=== PATIENT | female | born 1980 | race Two or more races ===

== ENCOUNTER 2016-10-25 06:28 | Inpatient (IN) | payer OTHER ==
[2016-10-25] MEDS ORDERED: TERBUTALINE SULFATE 1 MG/ML VIAL IV PRN (07:05)
[2016-10-25] MEDS ORDERED: OXYTOCIN/RINGERS LACTATE 1,000 ML IV PRN (07:05)
[2016-10-25] MEDS ORDERED: EPSOM SALT 454 GM TP PRN (07:05)
[2016-10-25] MEDS ORDERED: LR 1,000 ML IV PRN (07:05)
[2016-10-25] MEDS ORDERED: OLIVE OIL 118 ML BTL MISC PRN (07:05)
[2016-10-25 07:32] LABS: ABSOLUTE IMMATURE GRANULOCYTES 0.21 10^3/uL (0.00-0.10); ADD DIFF? NO; ADD MORPH? NO; ADD SCAN? NO; ATYPICAL LYMPHOCYTE FLAG 0 (0-99); FRAGMENT RBC FLAG 0 (0-99); HEMATOCRIT 40.5 % (38.0-47.0); HEMOGLOBIN 13.7 g/dL (12.6-16.3); LEFT SHIFT FLG 20 (0-99); LIPEMIA HEMOLYSIS FLAG 90 (0-99); MEAN CELL HEMOGLOBIN 30.3 pg (27.9-34.1); MEAN CELL HEMOGLOBIN CONCENTR. 33.8 g/dL (32.4-36.7); MEAN CELL VOLUME 89.6 fL (81.5-99.8); MEAN PLATELET VOLUME 10.7 fL (8.7-11.7); PLATELET CLUMPS FLAG 0 (0-99); PLATELET COUNT 243 10^3/uL (150-400); RED BLOOD CELL COUNT 4.52 10^6/uL (4.18-5.33); RED CELL DISTRIBUTION WIDTH 13.2 % (11.5-15.2)
--- NOTE | 2016-10-25 08:26 | OBPROG ---
OBG Labor Progress Note Assessment/Plan: Assessment:cat1 fhr saavedra bulb placed 30cc 2-3/50/-2 cephalic soft pitocin per protocol no contractions consulted with dr. rosado on POC Plan:iol for postdates 10/25/16 08:24 Subjective: Lots of questions before beginning IOL Objective: 10/25/16 07:00 Patient ABO/Rh B POSITIVE 10/25/16 07:00 - SVE Dilation (cm): 2 Effacement (%): 50 Station: -2 - Physical Exam General Appearance: WD/WN, alert, no apparent distress Estimated Weight: 3020-1569 Respiratory: chest non-tender, lungs clear, normal breath sounds Cardiac/Chest: regular rate, rhythm Abdomen: normal bowel sounds Extremities: normal range of motion, Joaquin's sign (negative bilaterally) DTR- Lower Extremities: Knee (R): 1+, Knee (L): 1+ (no clonus) Skin: normal color, warm/dry Neuro/Psych: no motor/sensory deficits, alert, normal mood/affect, oriented x 3 Oxytocin Orders Assessment - Pre-Induction/Augmentation Assessment Gestational Age: 41 week(s) and 3 day(s) ICD10 Worksheet Patient Problems: Problems Problem Status Onset IOL postdates Acute
[2016-10-25] MEDS ORDERED: OXYTOCIN/RINGERS LACTATE 500 ML IV SCH (08:30)
--- NOTE | 2016-10-25 09:52 | GHP ---
[f rep st] HISTORY AND PHYSICAL DATE OF ADMISSION: 10/25/2016 Patient is a 36-year-old, 3, para 0, AB 2, with an EDC of 10/15/2016, who is 41-1/7 weeks' gestational age. The patient comes in to Labor and Delivery today on 10/25/2016, for an induction of labor for post date. MEDICAL HISTORY: The patient has a history of anxiety and depression, history of asthma, decreased thyroid in . Had an endocrine referral. LGA. Previous use of Xanax although none in the . History of HSV type 1. Some gastrointestinal, digestive stuff, cholecystectomy at 4 years old. SURGICAL HISTORY: Cholecystectomy, 2 TABs. SOCIAL HISTORY: Patient is . Before , daily marijuana use. Denies tobacco smoking. Denies drug use. PREVIOUS HISTORY: 2 previous EABs, 1 in 1995 and 1 of 01/2015. History of being a vegan. FAMILY HISTORY: Noncontributory. LABS: The patient is GBS negative, B positive, antibody negative. RPR nonreactive. Hepatitis is negative. HIV is negative. Trio screen was negative. TSH was 0.015. __At 28 weeks_ was 0.023. AFP was within normal limits. Pap was negative. Gonorrhea and chlamydia were negative. Verifi was negative. 1-hour GTT was within normal limits. PHYSICAL ASSESSMENT: GENERAL: Patient is awake, alert, oriented x3. LUNGS: Clear bilaterally. ABDOMEN: Bowel sounds are positive in all 4 quadrants. No contractions. Abdomen was soft on assessment. NEURO: DTRs are 1+ bilaterally. Negative clonus. Homans sign was negative. On exam, patient was 2-3, 50, -2 , cephalic posterior soft. PLAN OF CARE: 1. GBS negative. 2. Kuo bulb to assist with ripening of the cervix. 3. Pitocin per protocol. 4. Pain relief as indicated by patient. 5. Continuous monitoring. Consult dr. Kamilla rosado as needed /[id number]/MODL MTDD
[2016-10-25] MEDS ORDERED: OLIVE OIL 118 ML BTL ONE (11:28)
[2016-10-25] MEDS ORDERED: LIDOCAINE 1% 300 MG/30 ML SDV ONE (11:28)
[2016-10-25] MEDS ORDERED: MISOPROSTOL 200 MCG TAB ONE (11:29)
[2016-10-25] MEDS ORDERED: AMMONIA AROMATIC 1 EACH AMP IH ONE (11:29)
[2016-10-25] MEDS ORDERED: TERBUTALINE SULFATE 1 MG/ML VIAL ONE (11:29)
--- NOTE | 2016-10-25 13:54 | OBPROG ---
OBG Labor Progress Note Assessment/Plan: Assessment:cat1 fhr saavedra out /-1 cephalic soft pitocin per protocol AT 10MU Q3-4 arom clear blood tinged fluid nitrous for pain relief recently out of the tub Plan:nitrous for pain relief 10/25/16 08:24 10/25/16 13:51 Subjective: Feeling greater pain. Nitrous for pain relief Objective: 10/25/16 07:00 Patient ABO/Rh B POSITIVE 10/25/16 07:00 - Procedures Non-surgical Procedures: Amniotomy - Physical Exam Estimated Weight: 2888-4153 Oxytocin Orders Assessment - Pre-Induction/Augmentation Assessment Gestational Age: 41 week(s) and 3 day(s) Estimated Weight: 4539-9757 ICD10 Worksheet Patient Problems: Problems Problem Status Onset IOL postdates Acute
[2016-10-25] MEDS ORDERED: PHENYLEPHRINE HCL 100 MCG/ML SYR ONE (14:28)
[2016-10-25] MEDS ORDERED: BUPIVACAINE 0.25% 30 ML SDV ONE (14:28)
[2016-10-25] MEDS ORDERED: fentaNYL 2MCG/ML/BUP 0.1% RTU 100 ML BAG EP ONE (14:28)
[2016-10-25] MEDS ORDERED: fentaNYL 100 MCG/2 ML INJ ONE (14:29)
[2016-10-25] MEDS ORDERED: PHENYLEPHRINE HCL 100 MCG/ML SYR IVP PRN (15:45)
[2016-10-25] MEDS ORDERED: ONDANSETRON 4 MG/2 ML VIAL IVP PRN (15:45)
--- NOTE | 2016-10-25 15:45 | PREANESOB ---
Obstetric Pre-Anesthesia Info - General Info Proposed Procedure: Labor and delivery with pitocin. : 4 Para: 0 WBD: 41 - Info Status: Postmature Monitors: External FHR Baseline (bpm): 130 FHR Pattern: Reassuring - Labor Status Cervical Dilation per last OB SVE: 4 Station per last OB SVE: -2 Pitocin: In Use Indications for Labor Analgesia: Induction of Labor, Pain Control Labor Epidural: Proposed Anesthesia ROS: Post dates. Allergies/Adverse Reactions: Allergy/AdvReac Type Severity Reaction Status Date / Time ciprofloxacin [From Cipro] Allergy Verified 10/25/16 07:04 Visit Medications: Generic Name Dose Route Start Last Admin Trade Name Freq PRN Reason Stop Dose Admin Lactated Ringer's 1,000 mls @ 0 mls/hr 10/25/16 07:05 10/25/16 08:54 Lr IV 04/23/17 07:04 1,000 mls PRN PRN Administration SEE PROTOCOL CONDITIONS Protocol Per Protocol Oxytocin/Lactated Ringer's 1,000 mls @ 150 mls/hr 10/25/16 07:05 Pitocin 20 Units/Lr (Premix) IV PRN PRN Post- bleeding Oxytocin/Lactated Ringer's 500 mls @ 0 mls/hr 10/25/16 08:30 10/25/16 08:54 Pitocin 30 Units/Lr (Premix) IV 04/23/17 08:29 500 mls CONT KHURRAM Administration Protocol Per Protocol Ibuprofen 600 mg 10/25/16 07:05 Motrin PO 04/23/17 07:04 Q6HRS PRN post , inflammation Magnesium Sulfate 454 gm 10/25/16 07:05 Epsom Salt TP 04/23/17 07:04 PRN PRN perineal discomfort [place] Oil 118 ml 10/25/16 07:05 Sweet Oil MISC 04/23/17 07:04 ONCE PRN preneal massage Terbutaline Sulfate 0.25 mg 10/25/16 07:05 Brethine IV 04/23/17 07:04 ONCE PRN Tachysystole Discontinued Medications Generic Name Dose Route Start Last Admin Trade Name Freq PRN Reason Stop Dose Admin Ammonia (Aromatic Spirit) Confirm 10/25/16 11:29 Ammonia Aromatic Administered 10/25/16 11:30 Dose 1 each IH .STK-MED ONE Bupivacaine HCl Confirm 10/25/16 14:28 Sensorcaine 0.25% Sdv Administered 10/25/16 14:29 Dose 30 ml .ROUTE .STK-MED ONE Ephedrine Sulfate Confirm 10/25/16 11:29 Ephedrine Sulfate Administered 10/25/16 11:30 Dose 50 mg .ROUTE .STK-MED ONE Fentanyl Confirm 10/25/16 14:29 Sublimaze Administered 10/25/16 14:30 Dose 100 mcg .ROUTE .STK-MED ONE Fentanyl/Bupivacaine HCl Confirm 10/25/16 14:28 Fentanyl/Bupivacaine/Ns 2 Mcg/Ml 0.1% (Premix Administered 10/25/16 14:29 Dose 100 ml EP .STK-MED ONE Lidocaine HCl Confirm 10/25/16 11:28 Lidocaine Hcl 1% Administered 10/25/16 11:29 Dose 300 mg .ROUTE .STK-MED ONE Misoprostol Confirm 10/25/16 11:29 Cytotec Administered 10/25/16 11:30 Dose 800 mcg .ROUTE .STK-MED ONE [place]dford Oil Confirm 10/25/16 11:28 Sweet Oil Administered 10/25/16 11:29 Dose 118 ml .ROUTE .STK-MED ONE Phenylephrine HCl Confirm 10/25/16 14:28 Neosynephrine Administered 10/25/16 14:29 Dose 1,000 mcg .ROUTE .STK-MED ONE Terbutaline Sulfate Confirm 10/25/16 11:29 Brethine Administered 10/25/16 11:30 Dose 1 mg .ROUTE .STK-MED ONE - Anesthesia History Response to Local Anesthetics: Normal Anesthesia & Operative History: No Prior Problems Family Anesthesia History: Negative - Social History Substance Use/Abuse: Denies - Focused Exam Blood Pressure: 142/68 Heart Rate: 100 Height/Weight (Nursing): Height 167.64 cm Weight 81.647 kg Physical Exam: Within normal limits. ASA Status: II Labs: 10/25/16 07:00 Patient ABO/Rh B POSITIVE 10/25/16 07:00 - Plan Anesthetic Plan: CSE Consent Signed and on Chart: Yes Patient/Guardian Understands and Agrees to Plan: Yes General Comments: Written consent signed after epidural due to patient discomfort.
--- NOTE | 2016-10-25 15:45 | POSTANESTH ---
Post Anesthetic Evaluation Cardiovascular Status: Normal, Stable Respiratory Status: Normal, Stable, Similar to Pre-op Cond. Level of Consciousness/Mental Status: Can Participate in Eval, Alert and Oriented (Tolerated CSE well, stable, comfortable.) Pain Control: Adequate, Prn Tx Ordered Nausea/Vomiting Control: Adequate, Prn Tx Ordered Complications Possibly Related to Anesthesia: None Noted
[2016-10-25] MEDS ORDERED: fentaNYL 2MCG/ML/BUP 0.1% RTU 100 ML EP SCH (16:00)
[2016-10-25] MEDS ORDERED: LR 500 ML IV SCH (16:00)
--- NOTE | 2016-10-25 16:55 | OBPROG ---
OBG Labor Progress Note Assessment/Plan: Assessment:cat2 fhr epidural for pain relief 7/100/0 cephalic soft pitocin per protocol AT 14MU Q3-4 arom clear blood tinged fluid pain a 4 intermittant variable decelerations urine looked at by dr. rosado after id called patient was treated for uti with intial urine with resolution plan: epidural for pain relief. expectant management of labor 10/25/16 08:24 10/25/16 13:51 10/25/16 16:51 10/25/16 16:53 Objective: 10/25/16 07:00 Patient ABO/Rh B POSITIVE 10/25/16 07:00 Temp Pulse Resp BP Pulse Ox 100 142/68 H 10/25/16 15:44 10/25/16 15:44 - SVE Dilation (cm): 7 Effacement (%): 100 Station: 0 - Procedures Non-surgical Procedures: Amniotomy - Physical Exam Estimated Weight: 9632-9581 Oxytocin Orders Assessment - Pre-Induction/Augmentation Assessment Gestational Age: 41 week(s) and 3 day(s) Estimated Weight: 5027-3042 ICD10 Worksheet Patient Problems: Problems Problem Status Onset IOL postdates Acute
--- NOTE | 2016-10-25 19:25 | OBPROG ---
OBG Labor Progress Note Assessment/Plan: Assessment:cat2 fhr/ variables epidural for pain relief 7/100/0 cephalic soft/ unchanged/ swelling on anterior portion of the cervix tachsystole off Q2 + bloody show iupc placed 0 intermittant variable decelerations urine looked at by dr. rosado after id called patient was treated for uti with intial urine with resolution discussed c/s r/b/a verbalized understanding update to dr. bill rosado plan: no change in cervix/ iupc placed repeat exam in 3h 10/25/16 08:24 10/25/16 13:51 10/25/16 16:51 10/25/16 16:53 10/25/16 19:22 Subjective: Denies feeling pain/ No change in cervix Objective: 10/25/16 07:00 Patient ABO/Rh B POSITIVE 10/25/16 07:00 Temp Pulse Resp BP Pulse Ox 100 142/68 H 10/25/16 15:44 10/25/16 15:44 - Procedures Non-surgical Procedures: Amniotomy - Physical Exam Estimated Weight: 6409-7733 Oxytocin Orders Assessment - Pre-Induction/Augmentation Assessment Gestational Age: 41 week(s) and 3 day(s) Estimated Weight: 6623-1519 ICD10 Worksheet Patient Problems: Problems Problem Status Onset IOL postdates Acute
[2016-10-25] MEDS ORDERED: CALCIUM CARBONATE 500 MG CHEWABLE TAB PO PRN (21:37)
--- NOTE | 2016-10-25 21:47 | OBPROG ---
OBG Labor Progress Note Assessment/Plan: Assessment:cat2 fhr/ variables epidural for pain relief working well denies pain 9/100/0 cephalic soft tachsystole off Q3-4 + bloody show iupc placed mvu 200 intermittant variable decelerations/ earlys epidural crawl to assist with rotation and descent plan: change in cervix, expectant management of labor 10/25/16 08:24 10/25/16 13:51 10/25/16 16:51 10/25/16 16:53 10/25/16 19:22 10/25/16 21:45 Objective: 10/25/16 07:00 Patient ABO/Rh B POSITIVE 10/25/16 07:00 Temp Pulse Resp BP Pulse Ox 100 142/68 H 10/25/16 15:44 10/25/16 15:44 - SVE Dilation (cm): 9 Effacement (%): 100 Station: -1 - Procedures Non-surgical Procedures: Amniotomy - Physical Exam Estimated Weight: 8558-5691 Oxytocin Orders Assessment - Pre-Induction/Augmentation Assessment Gestational Age: 41 week(s) and 3 day(s) Estimated Weight: 0447-4438 ICD10 Worksheet Patient Problems: Problems Problem Status Onset IOL postdates Acute
[2016-10-25] MEDS ORDERED: ACETAMINOPHEN 500 MG TAB PO ONE (23:02)
--- NOTE | 2016-10-25 23:02 | OBPROG ---
OBG Labor Progress Note Assessment/Plan: Assessment:cat2 fhr/ variables epidural for pain relief working well denies pain 9-10/100/0 cephalic soft pitocin at 5mu Q32-3 + bloody show iupc placed mvu 200 intermittant variable decelerations/ earlys left sided lip remains patient to the right side to assist with completion of cervical dilation plan: change in cervix, expectant management of labor 10/25/16 08:24 10/25/16 13:51 10/25/16 16:51 10/25/16 16:53 10/25/16 19:22 10/25/16 21:45 10/25/16 23:01 Objective: 10/25/16 07:00 Patient ABO/Rh B POSITIVE 10/25/16 07:00 Temp Pulse Resp BP Pulse Ox 100 142/68 H 10/25/16 15:44 10/25/16 15:44 - SVE Dilation (cm): 9 Effacement (%): 100 Station: 0 - Procedures Non-surgical Procedures: IUPC - Physical Exam Estimated Weight: 8030-9464 Oxytocin Orders Assessment - Pre-Induction/Augmentation Assessment Gestational Age: 41 week(s) and 3 day(s) Estimated Weight: 3554-2072 ICD10 Worksheet Patient Problems: Problems Problem Status Onset IOL postdates Acute
[2016-10-26] MEDS ORDERED: LR 500 ML IV ONE (00:15)
[2016-10-26] MEDS ORDERED: ceFAZolin 2 GM/DEXTROSE 100 ML IV ONE (00:15)
[2016-10-26] MEDS ORDERED: LR 1,000 ML IV SCH (00:30)
--- NOTE | 2016-10-26 00:36 | OBPROG ---
OBG Labor Progress Note Assessment/Plan: Assessment:cat2 fhr/ variables epidural for pain relief working well denies pain 9-10/100/0 cephalic soft/ no change in cervix/ caput and molding Q2-3 + bloody show iupc placed mvu 200/ adequete not adequete intermittant variable decelerations/ earlys left sided lip remains patient to the right side to assist with completion of cervical dilation maternal tachycardia tachycardia febrile max temp 37.9 anesthesia called for section plan: section/ consult with dr. rosado for poc 10/25/16 08:24 10/25/16 13:51 10/25/16 16:51 10/25/16 16:53 10/25/16 19:22 10/25/16 21:45 10/25/16 23:01 10/26/16 00:33 Objective: 10/25/16 07:00 Patient ABO/Rh B POSITIVE 10/25/16 07:00 Temp Pulse Resp BP Pulse Ox 100 142/68 H 10/25/16 15:44 10/25/16 15:44 - SVE Dilation (cm): 9 - Procedures Non-surgical Procedures: IUPC - Physical Exam Estimated Weight: 1895-9802 Oxytocin Orders Assessment - Pre-Induction/Augmentation Assessment Gestational Age: 41 week(s) and 3 day(s) Estimated Weight: 0983-4361 ICD10 Worksheet Patient Problems: Problems Problem Status Onset IOL postdates Acute
[2016-10-26] MEDS ORDERED: ONDANSETRON 4 MG/2 ML VIAL IVP PRN (00:42)
[2016-10-26] MEDS ORDERED: fentaNYL 100 MCG/2 ML INJ IVP PRN (00:42)
--- NOTE | 2016-10-26 00:45 | PDANEPAE ---
ANE History of Present Illness Patient presents for for arrest of dilation ANE Past Medical History - Pulmonary History Hx Asthma/Reactive Airway Disease: Yes ANE Review of Systems - Exercise capacity Exercise capacity: <4 METS ANE Patient History - Allergies Allergies/Adverse Reactions: ciprofloxacin [From Cipro] Allergy (Verified 10/25/16 07:04) ANE Labs/Vital Signs - Labs Result Diagrams: 10/25/16 07:00 - Vital Signs Blood Pressure: 142/68 Heart Rate: 100 Height: 167.64 cm Weight: 81.647 kg ANE Physical Exam - Airway Mallampati Score: Class 1 Mouth exam: normal dental/mouth exam - Pulmonary Pulmonary: no respiratory distress - Cardiovascular Cardiovascular: regular rate and rhythym - ASA Status ASA Status: II ANE Anesthesia Plan Anesthesia Plan: epidural (RBA discussed, patient agrees to proceed. )
--- NOTE | 2016-10-26 00:45 | OBPROG ---
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 the last 2 hours Pt is febrile with Tmax 38.2 at 0019 with both and maternal tachycardia- will start Amp and Gent Discussed proceeding with PCS secondary to arrest of dilation and descent Surgical consents obtained; R/B/A reviewed with pt including but not limited to bleeding, infection and damage to surrounding organs Pt is aware of risks and wants to proceed Abx risk control analyst to OR SCDs for DVT prophylaxis 10/26/16 00:48 Subjective: Pt is comfortable, starting to feel pressure Objective: 10/25/16 07:00 Patient ABO/Rh B POSITIVE 10/25/16 07:00 Temp Pulse Resp BP Pulse Ox 100 142/68 H 10/25/16 15:44 10/25/16 15:44 - SVE Dilation (cm): 9 Effacement (%): 100 Station: 0 Marsh Current Contraction Pattern: Regular FHR (bpm): 170 FHR Pattern Variability: Moderate FHR Category: 1 Membranes: SROM (1400 /) Amniotic Fluid Color: Clear - Procedures Non-surgical Procedures: IUPC - Physical Exam Estimated Weight: 5364-7564 Oxytocin Orders Assessment - Pre-Induction/Augmentation Assessment Gestational Age: 41 week(s) and 3 day(s) Estimated Weight: 3930-2401 ICD10 Worksheet Patient Problems: Problems Problem Status Onset Status post primary low transverse section Acute Chorioamnionitis, delivered, current hospitalization Acute Arrest of descent, delivered, current hospitalization Acute Arrest of dilation, delivered, current hospitalization Acute IOL postdates Acute
[2016-10-26] MEDS ORDERED: LIDOCAINE 2% 5 ML SDV ONE ×4 (00:47→01:49)
[2016-10-26] MEDS ORDERED: fentaNYL 100 MCG/2 ML INJ ONE ×2 (00:49→01:43)
[2016-10-26] MEDS ORDERED: CITRIC ACID/SODIUM CITRATE 30 ML UDCUP PO ONE (01:00)
[2016-10-26] MEDS ORDERED: OXYTOCIN 100 UNITS/10 ML VIAL ONE (01:16)
[2016-10-26] MEDS ORDERED: ONDANSETRON 4 MG/2 ML VIAL ONE (01:22)
[2016-10-26] MEDS ORDERED: HEMABATE 250 MCG/1 ML AMP IM ONE (01:30)
[2016-10-26] MEDS ORDERED: METHYLERGONOVINE MAL 0.2 MG/ML INJ ONE (01:30)
[2016-10-26 01:48] LABS: BASE EXCESS CORD -5.6 mEq/L (-13.6--3.2); CORD BLOOD PCO2 58.3 mmHg (37-60); PH ARTERIAL CORD BLOOD 7.23 (7.10-7.37)
[2016-10-26] MEDS ORDERED: DEXAMETHASONE 4 MG/ML VIAL ONE (01:49)
[2016-10-26 01:50] LABS: PH VENOUS CORD BLOOD 7.32 (7.20-7.42)
[2016-10-26] MEDS ORDERED: morphINE PF 5 MG/10 ML INJ ONE (02:02)
[2016-10-26] MEDS ORDERED: PROMETHAZINE HCL 25 MG/ML INJ IVP PRN (02:06)
[2016-10-26] MEDS ORDERED: ACETAMINOPHEN 325 MG TAB PO PRN (02:06)
[2016-10-26] MEDS ORDERED: GENTAMICIN PHARMACY TO DOSE MISC SCH (02:15)
--- NOTE | 2016-10-26 02:23 | OBDEL ---
Info Type: Primary GBS+: No Indications for Delivery: Postterm Favorable Cervix Vaginal Delivery - Labor and Delivery Non-surgical Procedures: IUPC Cord Gases: Cord Gases Cord Blood PCO2 58.3 mmHg (37-60) 10/26/16 01:35 Cord Base Excess -5.6 mEq/L (-13.6--3.2) 10/26/16 01:35 Cord ABG pH 7.23 (7.10-7.37) 10/26/16 01:35 Cord VBG pH 7.32 (7.20-7.42) 10/26/16 01:35 Operative Report - Delivery Pre-op Diagnoses: Arrest of dilation and descent; chorio Post-op Diagnoses: Arrest of dilation and descent; chorio Nulliparous Prior to Delivery: No Presentation at Delivery: Vertex Procedure: Low Transverse Surgeon: Kamilla Washington Tobacco Curer: Kimmie Yañez Anesthesiologist: Donny Prabhakar L&D Analgesia/Anesthesia Type: Epidural Complications: None Findings: Grossly normal appearing uterus, tubes and ovaries b/l; TE was boggy and had increased bleeding. Uterus closed in 2 layers and there was oozing noted. Rabia was placed for hemostasis. Pt received Pitocin as well as Methergine. Specimen(s)/Path: Placenta IV Fluid (ml): 1,700 EBL: 1L LR UO: 100 cc blood tinged urine before and after procedure Cord Gases: Cord Gases Cord Blood PCO2 58.3 mmHg (37-60) 10/26/16 01:35 Cord Base Excess -5.6 mEq/L (-13.6--3.2) 10/26/16 01:35 Cord ABG pH 7.23 (7.10-7.37) 10/26/16 01:35 Cord VBG pH 7.32 (7.20-7.42) 10/26/16 01:35 [place] Data [place] Delivery Date: 10/26/16 Delivery Time: 01:21 TJ: 10/15/16 Gestational Age: 41 week(s) and 4 day(s) Sex of : Female Weight (gm): 4134 kg Score (1 Min): 7 Score (5 Min): 9 ICD10 Worksheet Patient Problems: Problems Problem Status Onset Arrest of descent, delivered, current hospitalization Acute Arrest of dilation, delivered, current hospitalization Acute Chorioamnionitis, delivered, current hospitalization Acute IOL postdates Acute Status post primary low transverse section Acute
--- NOTE | 2016-10-26 02:27 | POSTANESTH ---
Post Anesthetic Evaluation Cardiovascular Status: Normal, Stable Respiratory Status: Normal, Stable Level of Consciousness/Mental Status: Can Participate in Eval Pain Control: Adequate, Prn Tx Ordered Nausea/Vomiting Control: Adequate, Prn Tx Ordered Complications Possibly Related to Anesthesia: None Noted
[2016-10-26] MEDS ORDERED: NALOXONE HCL 0.4 MG/ML INJ IVP PRN (02:31)
[2016-10-26] MEDS ORDERED: HYDROmorphONE/DILAUDID 6 MG/30 ML PCA IV PRN (02:31)
[2016-10-26] MEDS: AMPICILLIN SODIUM 2 GM in NS 100 ML IV SCH ×4 (02:56→20:42)
[2016-10-26] MEDS: D5W IV SCH (04:36)
[2016-10-26] MEDS: GENTAMICIN SULFATE IV SCH (04:36)
--- NOTE | 2016-10-26 13:59 | OBPP ---
Progress Note Assessment/Plan: Assessment: 36 y/o POD #0 s/p LTCS secondary to arrest of dilation, chorio Plan: Will continue antibiotics until 24 hours afebrile. Check CBC today. support, po pain meds. D/c quentin ching. 10/26/16 13:57 Subjective: Pt is doing well. She has min pain now and has ambulated to the room. Baby is nursing and doing well. She is tolerating small amounts of reg diet and will try po pain meds. Objective: 10/25/16 07:00 Patient ABO/Rh B POSITIVE 10/25/16 07:00 Temp Pulse Resp BP Pulse Ox 37.4 C 113 H 13 116/68 94 10/26/16 09:00 10/26/16 11:00 10/26/16 09:00 10/26/16 09:00 10/26/16 11:00 Uterine Position/Fundal Height: Umbilicus -2 Uterine Tone: Firm Physical Exam - Physical Exam General Appearance: WD/WN, alert, no apparent distress Neck: non-tender, full range of motion, supple Respiratory: chest non-tender, lungs clear, normal breath sounds Cardiac/Chest: regular rate, rhythm Abdomen: normal bowel sounds, incision (c/d/i) Extremities: swelling (1+), Joaquin's sign (neg)
[2016-10-26 14:39] LABS: % IMMATURE GRANULYOCYTES 0.7 % (0.0-1.1); ABSOLUTE IMMATURE GRANULOCYTES 0.16 10^3/uL (0.00-0.10); ADD DIFF? NO; ADD MORPH? NO; ADD SCAN? YES; ATYPICAL LYMPHOCYTE FLAG 0 (0-99); FRAGMENT RBC FLAG 0 (0-99); HEMATOCRIT 36.3 % (38.0-47.0); HEMOGLOBIN 12.2 g/dL (12.6-16.3); LIPEMIA HEMOLYSIS FLAG 80 (0-99); MEAN CELL HEMOGLOBIN CONCENTR. 33.6 g/dL (32.4-36.7); MEAN CELL VOLUME 92.1 fL (81.5-99.8); MEAN PLATELET VOLUME 10.3 fL (8.7-11.7); PLATELET CLUMPS FLAG 0 (0-99); PLATELET COUNT 223 10^3/uL (150-400); RED BLOOD CELL COUNT 3.94 10^6/uL (4.18-5.33); RED CELL DISTRIBUTION WIDTH 13.6 % (11.5-15.2)
[2016-10-26] MEDS: IBUPROFEN 600 MG TAB PO PRN ×2 (14:39→20:52)
[2016-10-26 14:45] LABS: LEFT SHIFT FLG 210 (0-99)
[2016-10-26 15:33] LABS: SCAN POSITIVE
[2016-10-26 15:39] LABS: PLATELET ESTIMATE ADEQUATE (ADEQ)
[2016-10-26] MEDS: DOCUSATE SODIUM 100 MG CAP PO PRN (20:42)
[2016-10-27] MEDS: IBUPROFEN 600 MG TAB PO PRN ×4 (02:46→20:36)
[2016-10-27] MEDS: D5W IV SCH (04:45)
[2016-10-27] MEDS: GENTAMICIN SULFATE IV SCH (04:45)
[2016-10-27] MEDS: AMPICILLIN SODIUM 2 GM in NS 100 ML IV SCH ×3 (04:45→18:16)
[2016-10-27] MEDS ORDERED: IBUPROFEN 600 MG TAB PO PRN (06:00)
[2016-10-27 06:08] LABS: ADD DIFF? YES; ADD MORPH? NO; ADD SCAN? NO; ATYPICAL LYMPHOCYTE FLAG 0 (0-99); FRAGMENT RBC FLAG 0 (0-99); HEMATOCRIT 29.3 % (38.0-47.0); HEMOGLOBIN 9.8 g/dL (12.6-16.3); LEFT SHIFT FLG 70 (0-99); LIPEMIA HEMOLYSIS FLAG 80 (0-99); MEAN CELL HEMOGLOBIN 30.7 pg (27.9-34.1); MEAN CELL HEMOGLOBIN CONCENTR. 33.4 g/dL (32.4-36.7); MEAN CELL VOLUME 91.8 fL (81.5-99.8); MEAN PLATELET VOLUME 10.3 fL (8.7-11.7); PLATELET CLUMPS FLAG 50 (0-99); PLATELET COUNT 201 10^3/uL (150-400); RED BLOOD CELL COUNT 3.19 10^6/uL (4.18-5.33); RED CELL DISTRIBUTION WIDTH 13.7 % (11.5-15.2)
[2016-10-27 06:55] LABS: PLATELET ESTIMATE ADEQUATE (ADEQ); POLYCHROMASIA 1+
[2016-10-27] MEDS: OXYCODONE/APAP 5/325 TAB PO PRN ×2 (08:26→20:34)
--- NOTE | 2016-10-27 19:26 | OBPP ---
Progress Note Assessment/Plan: Assessment: POD 1 1/2 s/p primary C/S anemia Plan: routine care 10/27/16 19:23 Subjective: Pt doing well. Pain is well controlled with 1 percocet and ibu. bld is normal - mod flow. urinating fine. Baby is latching well and breasts are getting a bit brock. Good colostrum Objective: 10/27/16 05:50 Patient ABO/Rh B POSITIVE 10/25/16 07:00 Temp Pulse Resp BP Pulse Ox 36.5 C 97 15 111/66 93 10/27/16 07:30 10/27/16 07:30 10/27/16 07:30 10/27/16 07:30 10/27/16 07:30 Uterine Position/Fundal Height: At Umbilicus Uterine Tone: Firm Physical Exam - Physical Exam General Appearance: WD/WN Abdomen: soft, other (incision CDI) Extremities: non-tender, pedal edema (minimal) Skin: warm/dry Neuro/Psych: normal mood/affect
[2016-10-27 19:50] VITALS: PULSE 100
[2016-10-27] MEDS: DOCUSATE SODIUM 100 MG CAP PO PRN (20:33)
[2016-10-27] MEDS: IRON POLYSAC/IRON HEME 28 MG TAB PO SCH (20:34)
[2016-10-28] MEDS: IBUPROFEN 600 MG TAB PO PRN ×2 (02:25→08:39)
[2016-10-28] MEDS: OXYCODONE/APAP 5/325 TAB PO PRN ×3 (06:57→18:54)
--- NOTE | 2016-10-28 08:16 | OBPP ---
Progress Note Assessment/Plan: Assessment: 1) s/p 1LTCS secondary to arrest of dilation, descent and chorio POD # 2.5 - pt is stable 2) Anemia - pt is asymptomatic Plan: Continue routine post-op care Plan for d/c home later today if baby is discharged Instructions reviewed with pt Rx given for Percocet and Motrin Cont PNV Pelvic rest RTC in 2 ,4 and 6 weeks for pp visit 10/28/16 08:17 Subjective: Pt seen and examined. In chair in NICU, BF her baby girl. Doing well, no complaints. Pain is well controlled. Pt is OOB, sam reg diet, voiding without difficulty, passing flatus and no BM yet. Denies any f/c/n/v/CP or SOB. BF without difficulty-using donor milk. Wants to go home today. Objective: 10/27/16 05:50 Patient ABO/Rh B POSITIVE 10/25/16 07:00 Temp Pulse Resp BP Pulse Ox 36.6 C 100 17 125/69 H 95 10/27/16 19:48 10/27/16 19:48 10/27/16 19:48 10/27/16 19:48 10/27/16 19:48 Uterine Position/Fundal Height: Umbilicus -2 Uterine Tone: Firm Physical Exam - Physical Exam General Appearance: WD/WN, alert, no apparent distress Respiratory: lungs clear, normal breath sounds Cardiac/Chest: regular rate, rhythm Abdomen: normal bowel sounds, non-tender, soft, flatus (+), incision (C/D/I) Extremities: non-tender, normal inspection Neuro/Psych: alert, normal mood/affect, oriented x 3
--- NOTE | 2016-10-28 08:23 | OBGCSDC ---
General Delivery Information - General Info : 4 Para: 1 Delivery Physician/CNM: Kamilla Washington Concrete Stone Fabricator: Kimmie Yañez Admission Date: 10/25/16 Labs: Patient ABO/Rh B POSITIVE 10/25/16 07:00 Hct 29.3 % (38.0-47.0) L D 10/27/16 05:50 Vaginal - Diagnosis Presentation at Delivery: Vertex - Operations/Procedures Non-surgical Procedures: IUPC L&D Analgesia/Anesthesia Type: Epidural - Delivery Number of Prior Sections: 0 Indications for Current Section: Arrest of Descent, Arrest of Dilation Type: Primary Non-surgical Procedures: IUPC Surgical Procedures: Low Transverse Intra-op Complications: None EBL: 1000 cc L&D Analgesia/Anesthesia Type: Epidural - Hospital Course : Uncomplicated. Pain is well controlled. Moderate lochia. Anemia-taking iron. No BM yet. BF without difficulty-using donor milk. [place] Data [place] Delivery Date: 10/26/16 Delivery Time: 01:21 TJ: 10/15/16 Gestational Age: 41 week(s) and 6 day(s) Sex of Infant: Female [place] Weight (gm): 4134 g Score (1 Min): 7 Score (5 Min): 9 Discharge Information - Discharge Information Discharge Medications: Ibuprofen, Vitamins, Other (Specify) (Percocet) Condition: Good Instruction/Follow Up: Two Weeks (and 4 weeks), Six Weeks Discharge Physician/CNM: Kamilla Washington
[2016-10-28] MEDS ORDERED: MAGNESIUM HYDROXIDE 30 ML UDCUP PO PRN (08:35)
[2016-10-28] MEDS ORDERED: LACTULOSE 20 GM/30 ML UDCUP PO PRN (08:35)
[2016-10-28] MEDS ORDERED: POLYETHYLENE GLYCOL 3350 17 GM PKT PO PRN (08:35)
[2016-10-28] MEDS ORDERED: BISACODYL 10 MG SUPP PR PRN (08:35)
[2016-10-28] MEDS: IRON POLYSAC/IRON HEME 28 MG TAB PO SCH (08:39)
[2016-10-28] MEDS: DOCUSATE SODIUM 100 MG CAP PO PRN ×2 (08:39→18:52)
[2016-10-28 09:11] VITALS: BP 125/77; RESP 19; TEMP 97.9; O2SAT 93
[2016-10-28] MEDS: SENNOSIDES/DOCUSATE SODIUM TAB PO SCH ×2 (09:19→18:53)
--- NOTE | 2016-10-28 13:34 | GOP ---
[f rep st] OPERATIVE REPORT DATE OF OPERATION: 10/26/2016 SURGEON: Kamilla Washington DO [employer] CONSULTANT: Kimmie Yañez CNM. ANESTHESIA: Epidural with Duramorph. ANESTHESIOLOGIST: Donny Prabhakar MD. PREOPERATIVE DIAGNOSIS: 1. Intrauterine at 41 weeks and 1 day. 2. Arrest of dilatation. 3. Arrest of descent. 4. Chorioamnionitis. POSTOPERATIVE DIAGNOSIS: 1. Intrauterine at 41 weeks and 1 day. 2. Arrest of descent. 3. Arrest of dilatation. 4. Chorioamnionitis. PROCEDURE PERFORMED: Primary low-transverse section. FINDINGS: Grossly normal-appearing uterus, tubes, and ovaries bilaterally. Intact placenta with a three-vessel cord, sent off to Pathology. A viable female weighing 4134 kg with 7 and 9 Apgars and cord gases, arterial 7.23 and venous 7.32. ESTIMATED BLOOD LOSS: 1000 cc. INDICATIONS: The patient is a 36-year-old, 3, para 0-0-2-0 at 41 and 1/ 7 weeks gestation with estimated due date October 15, 2016. Patient presents for a postdate induction of labor. The patiet was found to be 2 to 3 cm dilated, 50% effaced, -2 station, cephalic on admission. A saavedra bulb was placed along with low-dose Pitocin. The saavedra then came out and Pitocin ran per protocol. Patient progressed to 8 cm. There were times of tachysystole. An IUPC was then placed showing bouts of inadequate labor and then adequate labor. The patient did develop a fever and was diagnosed with chorioamnionitis, and started on antibiotics. Discussed with patient these findings of arrest of dilatation and descent, and chorio and recommend we proceed to the operating room for primary C -section. We discussed risks, benefits, alternatives to the procedure. Patient understands all risks of surgery and wants to proceed with the surgery at this time. DESCRIPTION OF PROCEDURE: The patient was taken to the operating room where the epidural was re-bolused. Patient was given 2 gram of Ancef prior to the incision. She was then prepped and draped in normal sterile fashion in supine position with a tilt. A Pfannenstiel skin incision was made 2 fingerbreadths above the pubic symphysis with a scalpel. Incision was then carried through underlying layer of fascia with the Bovie. Fascia was then nicked to the midline. Fascial incision was extended laterally with curved Powell scissors. Superior aspect of the fascial incision was grasped with Betito, tented up and the underlying rectus muscles were dissected off with curved Powell scissors. Attention was then turned to inferior aspect and, in a similar fashion, was grasped with Betito clamps, tented up, underlying rectus dissected off with the curved Powell scissors. Rectus muscles were in the midline. Peritoneum was identified and entered bluntly. Then it was extended superiorly and inferiorly with excellent visualization of bladder. Bladder blade was then inserted. The vesicouterine peritoneum was grasped with forceps and extended laterally using the Metzenbaum scissors creating the bladder flap. The bladder blade was then reinserted. At this time, the uterus was incised in low transverse fashion with the scalpel. The incision was then extended anteriorly and superiorly. 's head was delivered through the incision without difficulty, followed by the body. The cord was clamped x2 and then cut. Infant was handed off to waiting nurse practitioner. Cord blood was obtained as well as cord gases. Placenta was then delivered without difficulty intact with a three-vessel cord, and sent off to Pathology. Uterus was unable to be exteriorized, but was cleared of all clots and debris. Pitocin was then started. There was uterine atony noted at first in the lower uterine segment, then the uterus began to firm up. The patient did receive Methergine x1 at this time. Bladder blade was then reinserted. The hysterotomy was closed with 0 Vicryl in a running, locked fashion. Second imbricating layer was done with 0 Vicryl stitch, and hemostasis was noted. We were able to visualize ovaries and tubes bilaterally which were grossly normal appearing. The gutters were then cleared of all clots and debris. The uterine incision was looked at again and there was noted to be some oozing. Rabia was then placed on uterine incision and hemostasis was noted. The rectus muscles were then reapproximated using 2-0 Vicryl in a running fashion. The fascia was then closed with 0 Vicryl in a running fashion. Subcutaneous tissue was found to be hemostatic. The skin was then closed with 4-0 Vicryl on a Nagi needle. Sponge, lap, and needle counts were correct x2. Patient tolerated the procedure well. No complications. Patient was then transferred to recovery room in stable condition. INTRAVENOUS FLUIDS: 700 cc LR. URINE OUTPUT: 100 cc of clear urine at the end the procedure. /[id number]/MODL MTDD
[2016-10-28] MEDS: SIMETHICONE 80 MG TAB CHEW PO PRN ×2 (14:21→18:59)
== END 2016-10-28 18:50 | disposition home or self-care (01) | DRG 765 ==
LOC: FLD 06:28 → FOB 10-26 04:34
PROVIDERS: ADMIT Obstetrics & Gynecology; ATTEND Obstetrics & Gynecology
DX: O62.0 Primary inadequate contractions (principal); O32.4XX0 Maternal care for high head at term, not applicable or unspecified; O41.1230 Chorioamnionitis, third trimester, not applicable or unspecified; O36.63X0 Maternal care for excessive fetal growth, third trimester, not applicable or unspecified; O48.0 Post-term pregnancy; Z3A.41 41 weeks gestation of pregnancy; Z37.0 Single live birth
CPT/HCPCS: J0290; J0690; J1100; J2210; J2274; J2370; J2405; J2550; J2590; J3010; J3105